=== PATIENT | female | born 1995 | race African-American/Black ===

== ENCOUNTER 2023-03-01 18:00 | Emergency (ER) | payer OTHER ==
[~2023-03-01] VITALS: Ht 175.3 cm; Wt 79.4 kg
[2023-03-01 18:17] VITALS: BP 100/69; PULSE 84; RESP 16; O2SAT 98
[2023-03-01] MEDS ORDERED: ACETAMINOPHEN 325MG TABLET PO ONE (19:30)
[2023-03-01 20:07] VITALS: TEMP 98.2
[2023-03-01] MEDS ORDERED: TOPUD MT (20:49)
== END 2023-03-01 20:54 | disposition home or self-care (01) ==
LOC: ER 18:00
DX: J02.8 Acute pharyngitis due to other specified organisms (principal)
CPT/HCPCS: 87070; 87430; 99283

== ENCOUNTER 2023-03-08 15:12 | Emergency (ER) | payer OTHER ==
[~2023-03-08] VITALS: Ht 175.3 cm; Wt 77.0 kg
[~2023-03-08 15:12] MED LIST: TOPUD MT
[2023-03-08 15:18] VITALS: O2SAT 99
[2023-03-08] MEDS ORDERED: AMOX-494 MT (17:42)
[2023-03-08] MEDS ORDERED: OCUFLX LEFTEYE ×2 (17:43)
[2023-03-08] MEDS ORDERED: OFLO5DRO4 LEFT EAR (17:55)
[2023-03-08 18:02] VITALS: BP 128/82; PULSE 92; RESP 18; TEMP 99.7
== END 2023-03-08 18:03 | disposition home or self-care (01) ==
LOC: ER 15:12
DX: H66.92 Otitis media, unspecified, left ear (principal)
CPT/HCPCS: 99283